=== PATIENT | female | born 1960 | race Caucasian/White ===

== ENCOUNTER → 2017-01-05 | Outpatient (CLI) | payer OTHER | LOC: MAMO 09:59 | DX: Z12.31 Encounter for screening mammogram for malignant neoplasm of breast (principal) | CPT/HCPCS: G0202 ==

== ENCOUNTER → 2017-03-18 | Outpatient (CLI) | payer OTHER | LOC: KOH-I 11:49 | DX: M54.9 Dorsalgia, unspecified (principal); M25.561 Pain in right knee; M25.562 Pain in left knee; M47.892 Other spondylosis, cervical region; M48.04 Spinal stenosis, thoracic region; M43.9 Deforming dorsopathy, unspecified; M47.896 Other spondylosis, lumbar region | CPT/HCPCS: 72050; 72070; 72110; 73564 ==

== ENCOUNTER → 2020-10-09 | Outpatient (CLI) | payer OTHER | LOC: CT 13:41 | DX: R91.1 Solitary pulmonary nodule (principal); E27.9 Disorder of adrenal gland, unspecified; R59.9 Enlarged lymph nodes, unspecified | CPT/HCPCS: 36415; 71270; 82565; Q9967 ==